=== PATIENT | male | born 1980 ===

== ENCOUNTER 2021-08-31 11:05 | Outpatient (CLI) | payer OTHER ==
--- NOTE | 2021-09-03 02:22 | XRAY Report ---
PROCEDURE: Shoulder 3 View LT INDICATIONS: L SHOULDER PX TECHNIQUE: 3 views of the shoulder were acquired. Images became available for review on 09/02/2021. COMPARISON: None. FINDINGS: Bones: No fractures or dislocations. No suspicious bony lesions. Visualized ribs appear intact. H umeral head is mildly high riding. Soft tissues: No suspicious soft tissue calcifications. IMPRESSION: High riding humeral head which can be seen with rotator cuff pathology. Reviewed by: Merlyn Chang MD on 09/03/2021 1:43 AM PDT Approved by: Merlyn Chang MD on 09/03/2021 1:43 AM PDT Station ID: [id number]
--- NOTE | 2021-09-04 09:52 | XRAY Report ---
PROCEDURE: Ankle 3 View RT INDICATIONS: R ANKLE PX TECHNIQUE: 3 views of the ankle were acquired. COMPARISON: None FINDINGS: Bones: No fractures or dislocations. Ankle mortise is normally aligned. No suspicious bony lesions . Soft tissues: No tibiotalar joint effusion. Achilles tendon appears normal. IMPRESSION: No visualized acute fracture or dislocation. However, occult injury cannot be excluded. Recommend short interval imaging follow-up in 7-10 days as clinically indicated for additional evalua tion. Reviewed by: Merlyn Chang MD on 09/04/2021 9:51 AM PDT Approved by: Merlyn Chang MD on 09/04/2021 9:51 AM PDT Station ID: [id number]
== END 2021-08-31 11:06 | disposition home or self-care (01) ==
LOC: DI.N 11:05
PROVIDERS: ATTEND Physician Assistant
DX: R93.6 Abnormal findings on diagnostic imaging of limbs (principal); M25.571 Pain in right ankle and joints of right foot